=== PATIENT | male | born 1975 | race Caucasian/White ===

== ENCOUNTER 2018-05-03 20:55 | Emergency (ER) | payer OTHER ==
[2018-05-03] MEDS ORDERED: fentaNYL 100 MCG/2 ML INJ IVP ONE (21:17)
[2018-05-03] MEDS ORDERED: NS 1,000 ML IV ONE ×2 (21:17→22:48)
[2018-05-03] MEDS ORDERED: ONDANSETRON 4 MG/2 ML VIAL IVP ONE (21:17)
--- NOTE | 2018-05-03 21:18 | EDPHY ---
H & P Stated Complaint: N/V 24 hours Time Seen by Provider: 05/03/18 21:04 HPI/ROS: CHIEF COMPLAINT: Abdominal pain, nausea, vomiting HISTORY OF PRESENT ILLNESS: This is a 43-year-old gentleman who presents emergency department with 36 hr of abdominal pain, dry heaving, and vomiting. Patient reports yesterday morning developing mid abdominal/ suprapubic lower abdominal pain. Pain is described as moderate to severe. Not particularly waxing and waning, not aching, not sharp. Reports it feels like he has been punched in the abdomen. No clear exacerbating or relieving factors. He has not been hungry but did not think that food really change the discomfort. He has not had any distension. No diarrhea. No urinary complaints. After approximately 12 hr of the abdominal pain patient had an episode of vomiting with really no relief of his discomfort. He continued to have some dry heaves last night and today. No recent travel, no abdominal surgeries, no similar symptoms previously, gave him Pepto-Bismol with no improvement. No fever, chills, chest pain, shortness of breath, palpitations, diarrhea, urinary complaints, headache, lightheadedness. REVIEW OF SYSTEMS: A comprehensive 10 system review of systems was reviewed and is otherwise negative aside from elements mentioned in the history of present illness. PAST MEDICAL HISTORY: Keisha Charcot Tooth disease VITAL SIGNS Reviewed by me. GENERAL: Well-developed, well-nourished, appears in moderate discomfort. HEENT: Atraumatic. Eyes: No icterus, no injection. Mouth: moist mucous membranes. No erythema or lesions. Neck: supple with no adenopathy. LUNGS: Clear to auscultation bilaterally, no wheezes, rhonchi or rales. CARDIAC: Regular rate and rhythm, no rubs, murmurs or gallops. ABDOMEN: Soft, nondistended. Moderate tenderness at the level of the umbilicus , across the abdomen. Questionably slightly worse on the right. Moderate suprapubic tenderness. Normal bowel sounds. Voluntary guarding. : normal male external genitalia. No testicular pain, no scrotal swelling. BACK: No CVA tenderness. EXTREMITIES: No trauma. No edema. Range of motion is normal throughout. NEURO: Alert and oriented, grossly nonfocal. SKIN: Warm and dry, no rash. PSYCHIATRIC: Normal mentation, no agitation. - Medical/Surgical History Other PMH: CMT Constitutional: Initial Vital Signs Temperature (C) 36.9 C 05/03/18 21:03 Heart Rate 64 05/03/18 21:03 Respiratory Rate 16 05/03/18 21:03 Blood Pressure 126/82 H 05/03/18 21:03 O2 Sat (%) 94 05/03/18 21:03 O2 Delivery Mode Room Air Allergies/Adverse Reactions: Penicillins Allergy (Verified 05/03/18 21:06) Home Medications: Medication Instructions Recorded Ondansetron Odt [Zofran Odt 4 mg 4 mg PO Q6 PRN #8 tab 05/03/18 (RX)] oxyCODONE/APAP 5/325 [Percocet 1 tab PO QID PRN #10 tab 05/03/18 5/325 (*)] Medical Decision Making - Diagnostics Imaging Results: Imaging Impressions Abdomen CT 05/03/18 21:53 Impression: 1. Mild constipation. 2. No CT evidence of appendicitis, abscess or bowel obstruction. Findings and recommendations discussed with Emergency Department physician, Ml Pillai MD, at 2236 hour, 05/03/2018. Final report concurs with initial preliminary interpretation. ED Course/Re-evaluation: IV established, patient received fentanyl and Zofran. Point of care testing labs including CBC, comprehensive metabolic panel, and urinalysis ordered. Patient's laboratory evaluation is all largely unremarkable. He has creatinine of 1.2, normal white count, normal LFTs. Patient received fentanyl 100 mcg with good relief of his pain. Patient did drop his saturations slightly after the fentanyl was placed on O2. Patient underwent CT scan of abdomen and pelvis. Reported to me by Dr. Guan as showing no signs of appendicitis, no bowel obstruction, moderate constipation. Patient was reexamined after CT scan. He continues to have abdominal tenderness to examination. Fentanyl has worn off patient reports his pain is returning. Patient, his , myself held a long discussion concerning the evaluation thus far. Patient is reassured by the findings of no appendicitis, normal CT scan with the exception of constipation, normal laboratory evaluation. We will plan to provide additional pain medication including 0.5 mg of Dilaudid and Toradol 15 mg, as well as an additional L of fluid. Patient will be discharged home with abdominal pain precaution and asked to return to the emergency department for an abdominal pain recheck if he is not improving within the next 12-24 hours. Differential Diagnosis: After obtaining the patient's history and performing an examination, differential diagnosis considered included but was not limited to appendicitis, gastritis, kidney stones, urinary tract infections and other causes. - Data Points Laboratory Results: 05/03/18 21:33 POC Sodium 141 mEq/L mEq/L (135-145) POC Potassium 3.4 mEq/L mEq/L (3.3-5.0) POC Chloride 102.0 mEq/L mEq/L (97-110) POC Total CO2 27 mEq/L mEq/L (22-31) POC BUN 7 mg/dL mg/dL (7-23) POC Creatinine 1.2 mg/dL mg/dL (0.7-1.3) POC Glucose 114 mg/dL H mg/dL (70-100) POC Calcium 9.2 mg/dL mg/dL (8.5-10.4) POC Total Bilirubin 0.7 mg/dL mg/dL (0.1-1.4) POC AST 41 IU/L IU/L (17-59) POC ALT 37 IU/L IU/L (21-72) POC Alk Phosphatase 54 IU/L IU/L (38-126) POC Total Protein 6.8 g/dL g/dL (6.3-8.2) POC Albumin 4.0 g/dL g/dL (3.5-5.0) Medications Given: Discontinued Medications Fentanyl (Sublimaze) 100 mcg IVP EDNOW ONE Stop: 05/03/18 21:18 Last Admin: 05/03/18 21:43 Dose: 100 mcg Hydromorphone HCl (Dilaudid) 0.5 mg IVP EDNOW ONE Stop: 05/03/18 22:33 Last Admin: 05/03/18 23:02 Dose: 0.5 mg Sodium Chloride (Ns) 1,000 mls @ 0 mls/hr IV EDNOW ONE; Wide Open PRN Reason: Protocol Stop: 05/03/18 21:18 Last Admin: 05/03/18 21:40 Dose: 1,000 mls Sodium Chloride (Ns) 1,000 mls @ 0 mls/hr IV ONCE ONE; Wide Open PRN Reason: Protocol Stop: 05/03/18 22:49 Last Admin: 05/03/18 22:57 Dose: 1,000 mls Ketorolac Tromethamine (Toradol) 15 mg IVP EDNOW ONE Stop: 05/03/18 22:49 Last Admin: 05/03/18 23:00 Dose: 15 mg Ondansetron HCl (Zofran) 4 mg IVP EDNOW ONE Stop: 05/03/18 21:18 Last Admin: 05/03/18 21:41 Dose: 4 mg Point of Care Test Results: CBC CBC Collection Date 05/03/18 CBC Collection Time 21:30 WBC 6.0 RBC 5.18 HGB 16.9 HCT 48.1 PLT 168 Neut # 3.9 Neut 64.6 LYMPH # 1.5 LYMPH 25.7 Other WBC # 0.6 Other WBC 9.7 MCV 92.9 Chemistry 05/03/18 21:33 POC Sodium 141 mEq/L mEq/L (135-145) POC Potassium 3.4 mEq/L mEq/L (3.3-5.0) POC Chloride 102.0 mEq/L mEq/L (97-110) POC Total CO2 27 mEq/L mEq/L (22-31) POC BUN 7 mg/dL mg/dL (7-23) POC Creatinine 1.2 mg/dL mg/dL (0.7-1.3) POC Glucose 114 mg/dL H mg/dL (70-100) POC Calcium 9.2 mg/dL mg/dL (8.5-10.4) POC Total Bilirubin 0.7 mg/dL mg/dL (0.1-1.4) POC AST 41 IU/L IU/L (17-59) POC ALT 37 IU/L IU/L (21-72) POC Alk Phosphatase 54 IU/L IU/L (38-126) POC Total Protein 6.8 g/dL g/dL (6.3-8.2) POC Albumin 4.0 g/dL g/dL (3.5-5.0) Urine Dip Collection Date 05/03/18 Collection Time 22:39 [place] (1.002-1.030) 1.010 PH (5.0-7.5) 7.0 Leukocytes (Negative) Negative Nitrites (Negative) Negative Protein (Negative) Negative Glucose (Negative) Negative Ketones (Negative) Negative Urobilnogen (0.2-1.0 EU) 0.2 Bilirubin (Negative) Negative Blood (Negative) Negative Departure - Departure Disposition: Home, Routine, Self-Care Clinical Impression: Abdominal pain Qualifiers: Abdominal location: lower abdomen, unspecified Qualified Code(s): R10.30 - Lower abdominal pain, unspecified Condition: Fair Instructions: Acute Abdominal Pain (ED) Additional Instructions: There is no clear cause of your abdominal pain identified during this emergency department visit. There is no evidence of appendicitis, kidney stones, bowel obstruction, tumor masses, kidney infection. There is some evidence of constipation on your CT scan. I would advise you to obtain a bottle of magnesium citrate at the grocery store and mix half of the bottle with 16 oz of Gatorade. Please drink this over 15 min. If he did not have significant stool output, please repeat with the rest of the magnesium citrate. If you're not feeling improved after treatment for your constipation and further treatment I would suggest that you return to the emergency department for an abdominal pain recheck. If you develop a fever, recurrent vomiting, the distension, or significant worsening of the pain, please return to the emergency department urgently for reexamination. Referrals: NONE *PRIMARY CARE P,. [Primary Care Provider] - As per Instructions Prescriptions: Ondansetron Odt [Zofran Odt 4 mg (RX)] 4 mg PO Q6 PRN #8 tab PRN Reason: Nausea oxyCODONE/APAP 5/325 [Percocet 5/325 (*)] 1 tab PO QID PRN #10 tab PRN Reason: Pain
[2018-05-03] MEDS ORDERED: IOPAMIDOL (ISOVUE-300) 100 ML BTL ONE (22:04)
[2018-05-03] MEDS ORDERED: HYDROmorphONE/DILAUDID 2 MG/ML INJ IVP ONE (22:32)
[2018-05-03] MEDS ORDERED: KETOROLAC 15 MG/1 ML SDV IVP ONE (22:48)
[2018-05-03] MEDS ORDERED: ONDANSETRON 4MG PREPACK#2 BTL TAKEHOME ONE (22:54)
[2018-05-03] MEDS ORDERED: OXYCODONE/APAP 5/325MG PREPACK#4 BTL TAKEHOME ONE (22:54)
[2018-05-03 23:41] VITALS: BP 126/71
== END 2018-05-04 00:01 | disposition home or self-care (01) ==
LOC: CED 20:55
DX: R11.2 Nausea with vomiting, unspecified (principal); R10.30 Lower abdominal pain, unspecified; K59.00 Constipation, unspecified; E86.9 Volume depletion, unspecified
CPT/HCPCS: 74177-PO; 80053-PO; 96374; J1170; J1885; J2405; J3010; Q9967